=== PATIENT | female | born 1945 | race Caucasian/White ===

== ENCOUNTER 2023-01-31 19:18 | Inpatient (IN) | payer OTHER ==
[~2023-01-31] VITALS: Ht 157.5 cm; Wt 66.8 kg
[2023-01-31 19:24] VITALS: BP_SYST 187; PULSE 77; RESP 20; TEMP 98.3; O2SAT 94
[2023-01-31] MEDS ORDERED: ENALAPRILAT DIHYDRATE 1.25 MG/ML VIAL IVP ONE (19:30)
[2023-01-31 20:12] LABS: BASOPHILS # (AUTO) 0.1 K/uL (0.0-0.2); BASOPHILS % (AUTO) 0.8 % (0.0-2.0); EOSINOPHILS # (AUTO) 0.1 K/uL (0.0-0.4); EOSINOPHILS % (AUTO) 0.7 % (0.0-4.0); HEMATOCRIT 43.3 % (36-48); HEMOGLOBIN 14.4 g/dL (12.0-16.0); LYMPHOCYTES # (AUTO) 3.7 K/uL (1.0-5.5); LYMPHOCYTES % (AUTO) 36.1 % (20.5-51.5); MEAN CORPUSCULAR HEMOGLOBIN 33 pg (27-31); MEAN CORPUSCULAR HGB CONC 33 % (32-36); MEAN CORPUSCULAR VOLUME 98 fL (79.0-98.0); MONOCYTES # (AUTO) 0.6 K/uL (0.0-1.0); MONOCYTES % (AUTO) 5.9 % (1.7-9.3); NEUTROPHILS # (AUTO) 5.9 K/uL (1.8-7.7); NEUTROPHILS % (AUTO) 56.5 % (40.0-70.0); PLATELET COUNT (AUTO) 264 K/uL (130-430); RED BLOOD CELL COUNT(AUTO) 4.42 MIL/uL (4.2-6.2); RED CELL DISTRIBUTION WIDTH 13.1 % (9.0-15.0); WHITE BLOOD COUNT (AUTO) 10.4 K/uL (4.8-10.8)
[2023-01-31 20:24] LABS: ANION GAP 6 (5-15); CALCIUM 9.3 mg/dL (8.4-11.0); CHLORIDE 105 mmol/L (98-107); CREATININE 0.76 mg/dL (0.55-1.30); GLUCOSE 99 mg/dL (74-106); UREA NITROGEN, BLOOD 8 mg/dL (8-21)
[2023-01-31 20:31] LABS: ALANINE AMINOTRANSFERASE 14 U/L (12-78); ALBUMIN 3.7 g/dL (3.4-4.8); ASPARTATE AMINOTRANSFERASE 13 U/L (10-37); TOTAL BILIRUBIN 0.6 mg/dL (0.0-1.0)
[2023-01-31] MEDS ORDERED: SIMVASTATIN 40 MG TABLET PO ONE (22:15)
[2023-01-31] MEDS ORDERED: CLOPIDOGREL BISULFATE 75 MG TABLET PO ONE (22:15)
[2023-01-31] MEDS ORDERED: LABETALOL HCL 20 MG/4 ML CARTRIDGE IVP ONE (23:45)
[2023-02-01 02:00] VITALS: BP_SYST 165; PULSE 81; RESP 16; TEMP 96.6; O2SAT 96
[2023-02-01 07:35] LABS: ALANINE AMINOTRANSFERASE 16 U/L (12-78); ALBUMIN 3.8 g/dL (3.4-4.8); ANION GAP 9 (5-15); ASPARTATE AMINOTRANSFERASE 16 U/L (10-37); CALCIUM 9.6 mg/dL (8.4-11.0); CHLORIDE 102 mmol/L (98-107); CREATININE 0.64 mg/dL (0.55-1.30); GLUCOSE 109 mg/dL (74-106); UREA NITROGEN, BLOOD 6 mg/dL (8-21)
[2023-02-01 07:37] LABS: BASOPHILS # (AUTO) 0.1 K/uL (0.0-0.2); BASOPHILS % (AUTO) 0.6 % (0.0-2.0); EOSINOPHILS # (AUTO) 0.1 K/uL (0.0-0.4); EOSINOPHILS % (AUTO) 0.4 % (0.0-4.0); HEMOGLOBIN 15.7 g/dL (12.0-16.0); LYMPHOCYTES # (AUTO) 4.5 K/uL (1.0-5.5); LYMPHOCYTES % (AUTO) 34.1 % (20.5-51.5); MEAN CORPUSCULAR HEMOGLOBIN 33 pg (27-31); MEAN CORPUSCULAR HGB CONC 34 % (32-36); MEAN CORPUSCULAR VOLUME 97 fL (79.0-98.0); MONOCYTES # (AUTO) 0.9 K/uL (0.0-1.0); MONOCYTES % (AUTO) 6.6 % (1.7-9.3); NEUTROPHILS # (AUTO) 7.7 K/uL (1.8-7.7); NEUTROPHILS % (AUTO) 58.3 % (40.0-70.0); PLATELET COUNT (AUTO) 284 K/uL (130-430); RED BLOOD CELL COUNT(AUTO) 4.83 MIL/uL (4.2-6.2); RED CELL DISTRIBUTION WIDTH 13.7 % (9.0-15.0); WHITE BLOOD COUNT (AUTO) 13.2 K/uL (4.8-10.8)
[2023-02-01] MEDS: ASPIRIN 81 MG TAB.CHEW PO SCH (08:20)
[2023-02-01] MEDS: CLOPIDOGREL BISULFATE 75 MG TABLET PO SCH (08:20)
[2023-02-01] MEDS: ATORVASTATIN 20 MG TABLET PO SCH (08:20)
[2023-02-01 08:24] VITALS: BP_SYST 169; PULSE 93; RESP 16; O2SAT 94
[2023-02-01 12:00] VITALS: BP_SYST 158; PULSE 93; RESP 20; TEMP 96.5; O2SAT 96
[2023-02-01 16:00] VITALS: BP_SYST 172; PULSE 97; RESP 17; TEMP 97.3; O2SAT 93
[2023-02-01 20:00] VITALS: BP_SYST 188; PULSE 99; RESP 18; TEMP 97.8; O2SAT 97
[2023-02-02] VITALS: BP_SYST 177; PULSE 95; RESP 18; TEMP 98.3; O2SAT 99
[2023-02-02 06:30] LABS: BASOPHILS # (AUTO) 0.1 K/uL (0.0-0.2); BASOPHILS % (AUTO) 0.5 % (0.0-2.0); EOSINOPHILS % (AUTO) 0.1 % (0.0-4.0); HEMATOCRIT 52.3 % (36-48); HEMOGLOBIN 17.6 g/dL (12.0-16.0); LYMPHOCYTES # (AUTO) 3.5 K/uL (1.0-5.5); LYMPHOCYTES % (AUTO) 19.7 % (20.5-51.5); MEAN CORPUSCULAR HEMOGLOBIN 32 pg (27-31); MEAN CORPUSCULAR HGB CONC 34 % (32-36); MEAN CORPUSCULAR VOLUME 96 fL (79.0-98.0); MONOCYTES # (AUTO) 1.5 K/uL (0.0-1.0); MONOCYTES % (AUTO) 8.3 % (1.7-9.3); NEUTROPHILS # (AUTO) 12.8 K/uL (1.8-7.7); NEUTROPHILS % (AUTO) 71.4 % (40.0-70.0); PLATELET COUNT (AUTO) 310 K/uL (130-430); RED BLOOD CELL COUNT(AUTO) 5.45 MIL/uL (4.2-6.2); RED CELL DISTRIBUTION WIDTH 13.7 % (9.0-15.0); WHITE BLOOD COUNT (AUTO) 17.9 K/uL (4.8-10.8)
[2023-02-02 06:48] LABS: ALANINE AMINOTRANSFERASE 16 U/L (12-78); ALBUMIN 4.1 g/dL (3.4-4.8); ANION GAP 14 (5-15); ASPARTATE AMINOTRANSFERASE 20 U/L (10-37); CALCIUM 9.7 mg/dL (8.4-11.0); CHLORIDE 98 mmol/L (98-107); CREATININE 0.89 mg/dL (0.55-1.30); GLUCOSE 119 mg/dL (74-106); PHOSPHORUS 3.2 mg/dL (2.7-4.5); TOTAL BILIRUBIN 1.9 mg/dL (0.0-1.0); UREA NITROGEN, BLOOD 13 mg/dL (8-21)
[2023-02-02 07:25] VITALS: BP_SYST 202; PULSE 116; RESP 18; TEMP 96.6; O2SAT 96
[2023-02-02 07:44] LABS: CHOLESTEROL 322 mg/dL (<200); HDL CHOLESTEROL 73 mg/dL (>55); TRIGLYCERIDES 122 mg/dL (30-150)
[2023-02-02] MEDS ORDERED: KCL 20 mEq in 100 mL (PREMIX) 200 ML IV ONE (07:45)
[2023-02-02] MEDS: ONDANSETRON HCL 4 MG/2 ML VIAL IVP PRN (08:07)
[2023-02-02] MEDS: PIPERACILLIN/TAZO 4.5GM/DEX-IS 100 ML IV SCH ×3 (08:23→21:20)
[2023-02-02 09:22] LABS: BILIRUBIN,URINE 2+ (NEGATIVE); BLOOD, URINE 3+ (NEGATIVE); CLARITY/URINE SL CLOUDY (CLEAR); GLUCOSE,URINE NEGATIVE (NEGATIVE); KETONES,URINE 2+ (NEGATIVE); LEUKOCYTE ESTERASE ,URINE TRACE (NEGATIVE); NITRITE, URINE NEGATIVE (NEGATIVE); PH,URINE 6.5 (5.0-8.0); PROTEIN URINE 3+ (NEGATIVE)
[2023-02-02 09:31] LABS: COLOR,URINE YELLOW (YELLOW)
[2023-02-02 09:34] LABS: BACTERIA,URINE FEW /HPF (None Seen); RBC,URINE 20-50 /HPF (0-3)
[2023-02-02 09:35] LABS: COARSE GRANULAR CASTS,URINE 0-4 /LPF (None Seen); HYALINE CASTS, URINE 0-10 /LPF (None Seen); MUCUS,URINE 3+ /LPF (None Seen)
[2023-02-02] MEDS: CLOPIDOGREL BISULFATE 75 MG TABLET PO SCH (09:58)
[2023-02-02] MEDS: ATORVASTATIN 20 MG TABLET PO SCH (09:58)
[2023-02-02] MEDS: ASPIRIN 81 MG TAB.CHEW PO SCH (09:58)
[2023-02-02] MEDS ORDERED: hydrALAZINE HCL 20 MG/ML VIAL IVP PRN (10:45)
[2023-02-02 11:45] VITALS: BP_SYST 157; PULSE 107; RESP 18; TEMP 96.2; O2SAT 96
[2023-02-02] MEDS: POTASSIUM CHLORIDE 30 MEQ in NACL 0.9% 1,000 ML IV SCH ×2 (14:51→21:20)
[2023-02-02 16:00] VITALS: BP_SYST 131; PULSE 99; RESP 17; TEMP 96.8; O2SAT 96
[2023-02-02 19:40] VITALS: O2SAT 91
[2023-02-02 20:00] VITALS: BP_SYST 139; PULSE 97; RESP 18; TEMP 97.4; O2SAT 91
[2023-02-03] VITALS: BP_SYST 122; PULSE 90; RESP 18; TEMP 96.9; O2SAT 90
[2023-02-03 05:42] LABS: BASOPHILS # (AUTO) 0.1 K/uL (0.0-0.2); BASOPHILS % (AUTO) 0.6 % (0.0-2.0); EOSINOPHILS % (AUTO) 0.2 % (0.0-4.0); HEMATOCRIT 46.3 % (36-48); HEMOGLOBIN 15.1 g/dL (12.0-16.0); LYMPHOCYTES # (AUTO) 4.9 K/uL (1.0-5.5); LYMPHOCYTES % (AUTO) 33.1 % (20.5-51.5); MEAN CORPUSCULAR HEMOGLOBIN 32 pg (27-31); MEAN CORPUSCULAR HGB CONC 33 % (32-36); MEAN CORPUSCULAR VOLUME 97 fL (79.0-98.0); MONOCYTES # (AUTO) 1.4 K/uL (0.0-1.0); MONOCYTES % (AUTO) 9.2 % (1.7-9.3); NEUTROPHILS # (AUTO) 8.5 K/uL (1.8-7.7); NEUTROPHILS % (AUTO) 56.9 % (40.0-70.0); PLATELET COUNT (AUTO) 261 K/uL (130-430); RED BLOOD CELL COUNT(AUTO) 4.76 MIL/uL (4.2-6.2); RED CELL DISTRIBUTION WIDTH 13.4 % (9.0-15.0); WHITE BLOOD COUNT (AUTO) 14.9 K/uL (4.8-10.8)
[2023-02-03 06:12] LABS: ALANINE AMINOTRANSFERASE 14 U/L (12-78); ALBUMIN 3.2 g/dL (3.4-4.8); ANION GAP 10 (5-15); ASPARTATE AMINOTRANSFERASE 21 U/L (10-37); CALCIUM 8.4 mg/dL (8.4-11.0); CHLORIDE 105 mmol/L (98-107); CREATININE 1.18 mg/dL (0.55-1.30); GLUCOSE 114 mg/dL (74-106); PHOSPHORUS 3.4 mg/dL (2.7-4.5); TOTAL BILIRUBIN 1.7 mg/dL (0.0-1.0); UREA NITROGEN, BLOOD 25 mg/dL (8-21)
[2023-02-03] MEDS: PIPERACILLIN/TAZO 4.5GM/DEX-IS 100 ML IV SCH ×3 (06:26→21:01)
[2023-02-03] MEDS: POTASSIUM CHLORIDE 30 MEQ in NACL 0.9% 1,000 ML IV SCH ×2 (08:03→17:21)
[2023-02-03] MEDS: CLOPIDOGREL BISULFATE 75 MG TABLET PO SCH (08:41)
[2023-02-03] MEDS: ASPIRIN 81 MG TAB.CHEW PO SCH (08:41)
[2023-02-03] MEDS: ATORVASTATIN 20 MG TABLET PO SCH (08:41)
[2023-02-03 09:00] VITALS: O2SAT 93
[2023-02-03] MEDS: ONDANSETRON HCL 4 MG/2 ML VIAL IVP PRN ×2 (10:15→23:54)
[2023-02-03 12:30] VITALS: BP_SYST 114; PULSE 73; RESP 16; TEMP 97.1; O2SAT 93
[2023-02-03 16:19] VITALS: BP_SYST 110; PULSE 76; RESP 16; TEMP 97; O2SAT 93
[2023-02-03 19:00] VITALS: BP_SYST 112; PULSE 74; RESP 16; TEMP 97.2; O2SAT 94
[2023-02-03 20:00] VITALS: BP_SYST 112; PULSE 74; RESP 16; TEMP 97.2; O2SAT 94
[2023-02-03] MEDS ORDERED: TEMAZEPAM 7.5 MG CAPSULE PO PRN (23:15)
[2023-02-03] MEDS ORDERED: NALOXONE HCL 0.4 MG/ML AMP (NARCAN) IVP PRN (23:15)
[2023-02-03] MEDS: PREGABALIN 75 MG CAPSULE (LYRICA) PO SCH (23:54)
[2023-02-04 00:44] VITALS: BP_SYST 150; PULSE 86; RESP 18; TEMP 97.3; O2SAT 93
[2023-02-04] MEDS: POTASSIUM CHLORIDE 30 MEQ in NACL 0.9% 1,000 ML IV SCH ×2 (04:39→15:59)
[2023-02-04] MEDS: PIPERACILLIN/TAZO 4.5GM/DEX-IS 100 ML IV SCH ×2 (05:26→13:44)
[2023-02-04 05:43] LABS: BASOPHILS # (AUTO) 0.1 K/uL (0.0-0.2); BASOPHILS % (AUTO) 0.8 % (0.0-2.0); EOSINOPHILS # (AUTO) 0.2 K/uL (0.0-0.4); EOSINOPHILS % (AUTO) 1.4 % (0.0-4.0); HEMATOCRIT 40.5 % (36-48); HEMOGLOBIN 13.4 g/dL (12.0-16.0); LYMPHOCYTES % (AUTO) 45.2 % (20.5-51.5); MEAN CORPUSCULAR HEMOGLOBIN 33 pg (27-31); MEAN CORPUSCULAR HGB CONC 33 % (32-36); MEAN CORPUSCULAR VOLUME 99 fL (79.0-98.0); MONOCYTES % (AUTO) 7.6 % (1.7-9.3); NEUTROPHILS # (AUTO) 5.9 K/uL (1.8-7.7); PLATELET COUNT (AUTO) 233 K/uL (130-430); RED CELL DISTRIBUTION WIDTH 13.9 % (9.0-15.0); WHITE BLOOD COUNT (AUTO) 13.2 K/uL (4.8-10.8)
[2023-02-04 06:03] LABS: ANION GAP 11 (5-15); CHLORIDE 110 mmol/L (98-107); CREATININE 0.89 mg/dL (0.55-1.30); GLUCOSE 91 mg/dL (74-106); UREA NITROGEN, BLOOD 17 mg/dL (8-21)
[2023-02-04 08:00] VITALS: BP_SYST 130; PULSE 76; RESP 16; TEMP 96.8; O2SAT 95; O2SAT 96
[2023-02-04] MEDS ORDERED: PREGABALIN 75 MG CAPSULE (LYRICA) ONE ×2 (09:22→09:36)
[2023-02-04] MEDS: ASPIRIN 81 MG TAB.CHEW PO SCH (09:25)
[2023-02-04] MEDS: ATORVASTATIN 20 MG TABLET PO SCH (09:25)
[2023-02-04] MEDS: CLOPIDOGREL BISULFATE 75 MG TABLET PO SCH (09:26)
[2023-02-04] MEDS: HYDROcodone/ACETAMIN 5-325 MG TAB (NORCO/ VICODIN) PO PRN ×2 (09:28→18:42)
[2023-02-04] MEDS: PREGABALIN 75 MG CAPSULE (LYRICA) PO SCH ×2 (09:32→15:20)
[2023-02-04 12:00] VITALS: BP_SYST 135; PULSE 80; RESP 16; TEMP 97.8; O2SAT 96
[2023-02-04] MEDS ORDERED: ASA81 PO (13:30)
[2023-02-04] MEDS ORDERED: CLOP75TA32 PO (13:30)
[2023-02-04] MEDS ORDERED: TEMA7.5C2 PO (13:30)
[2023-02-04] MEDS ORDERED: PREG75CA76 PO (13:30)
[2023-02-04] MEDS ORDERED: LIP20 PO (13:30)
[2023-02-04 16:00] VITALS: BP_SYST 141; PULSE 74; RESP 16; TEMP 96.2; O2SAT 97
[2023-02-04 17:54] VITALS: BP_SYST 138; PULSE 77; RESP 20; TEMP 96.9; O2SAT 97
== END 2023-02-04 18:59 | disposition home health service (06) | DRG 304 ==
LOC: SED 19:18 → STU 02-01 00:29
PROVIDERS: ADMIT Student in an Organized Health Care Education/Training Program; ATTEND Specialist
DX: I16.1 Hypertensive emergency (principal); I63.9 Cerebral infarction, unspecified; G81.94 Hemiplegia, unspecified affecting left nondominant side; R65.10 Systemic inflammatory response syndrome (SIRS) of non-infectious origin without acute organ dysfunction; M79.7 Fibromyalgia; E87.6 Hypokalemia; R73.9 Hyperglycemia, unspecified; R53.81 Other malaise; E83.52 Hypercalcemia; E87.5 Hyperkalemia; Z88.2 Allergy status to sulfonamides; Z79.899 Other long term (current) drug therapy
CPT/HCPCS: 36415; 70450-TC; 70551; 71045; 76376; 80048; 80053; 80061; 81000; 83037; 83735; 84100; 84484; 85025; 87040; 87086; 92610-GN; 93005; 93306; 93880; 96374; 96375; 97116-GP; 97530-GP; 99285; G0378; J2405; J2543; J3480; J7030